=== PATIENT | female | born 1965 | race African-American/Black ===

== ENCOUNTER 2024-12-12 22:20 | Inpatient (IN) | payer OTHER ==
[2024-12-12 23:03] VITALS: BMI 24.7
[2024-12-12] MEDS ORDERED: ACETAMINOPHEN 325 MG TABLET (FP) PO PRN (23:20)
[2024-12-12] MEDS ORDERED: NALOXONE (NARCAN) HCL 4 MG/0.1 ML SPRAY NS PRN (23:20)
[2024-12-12] MEDS ORDERED: DICYCLOMINE HCL 10 MG CAPSULE PO PRN (23:20)
[2024-12-12] MEDS ORDERED: BENZONATATE 200 MG CAPSULE PO PRN (23:20)
[2024-12-12] MEDS ORDERED: NICOTINE POLACRILEX 2 MG GUM BUC PRN (23:20)
[2024-12-12] MEDS ORDERED: guaiFENesin 600 MG TABLET.ER (FP) PO PRN (23:20)
[2024-12-12] MEDS ORDERED: BENZOCAINE/MENTHOL (CHLORASEPTIC ) LOZENGE MM PRN (23:20)
[2024-12-12] MEDS ORDERED: BISMUTH SUBSALICYLATE 524 MG/30 ML PO PRN (23:20)
[2024-12-12] MEDS ORDERED: IBUPROFEN 600 MG TABLET (FP) PO PRN (23:20)
[2024-12-12] MEDS ORDERED: LOPERAMIDE HCL 2 MG CAPSULE PO PRN (23:20)
[2024-12-12] MEDS ORDERED: IBUPROFEN 400 MG TABLET (FP) PO PRN (23:20)
[2024-12-12] MEDS ORDERED: POLYETHYLENE GLYCOL (HEALTHYLAX) 3350 17 GM PACKET PO PRN (23:20)
[2024-12-12] MEDS ORDERED: ONDANSETRON *ODT* 4 MG TABLET SL PRN (23:20)
[2024-12-12] MEDS ORDERED: NICOTINE POLACRILEX 2 MG LOZENGE BC PRN (23:20)
[2024-12-12] MEDS ORDERED: MAGNESIUM HYDROX 2400MG/30ML ORAL SUSPENSION 30 ML CUP PO PRN (23:20)
[2024-12-12] MEDS ORDERED: MAG HYDROX/AL HYDROX/SIMETH 30 ML UNIT-DOSE CUP PO PRN (23:20)
[2024-12-12] MEDS ORDERED: METOPROLOL TARTRATE 25 MG TABLET (FP) ONE (23:52)
[2024-12-12] MEDS: METOPROLOL TARTRATE 25 MG TABLET (FP) PO ONE (23:57)
[2024-12-13] MEDS: METHOCARBAMOL 500 MG TABLET PO PRN (01:25)
[2024-12-13] MEDS: hydrOXYzine PAMOATE 25 MG CAPSULE (FP) PO PRN (01:26)
[2024-12-13] MEDS: PRENATAL VITAMINS W/ FOLIC ACID TABLET (FP) PO SCH (10:49)
[2024-12-13] MEDS: metFORMIN HCL 500 MG TABLET (FP) PO SCH (10:50)
[2024-12-13] MEDS: MELATONIN 5 MG TABLETS PO SCH (22:29)
[2024-12-13] MEDS: THIAMINE 100 MG TABLET PO SCH (22:30)
[2024-12-14 13:43] VITALS: RESP 14
[2024-12-14] MEDS ORDERED: NALTREXONE HCL 50 MG TABLET PO ONE (13:54)
[2024-12-14] MEDS: NICOTINE 21 MG/24 HOURS TOPICAL PATCH TD SCH (14:15)
[2024-12-14] MEDS: NALTREXONE HCL 50 MG TABLET PO ONE (14:15)
[2024-12-14] MEDS ORDERED: metFORMIN HCL 500 MG TABLET (FP) PO SCH (16:30)
[2024-12-14 16:51] VITALS: BP 152/86; PULSE 70; TEMP 97.6
[2024-12-15] MEDS ORDERED: NALTREXONE HCL 50 MG TABLET PO SCH (10:00)
== END 2024-12-14 16:36 | disposition left against medical advice (07) | DRG 770 ==
LOC: YASAS 22:20 → Y3N 12-13 00:50
PROVIDERS: ADMIT Allergy & Immunology; ATTEND Allergy & Immunology
PROC: HZ2ZZZZ Detoxification Services for Substance Abuse Treatment (ICD-10-PCS; principal; 2024-12-13)
DX: F10.230 Alcohol dependence with withdrawal, uncomplicated (principal); F14.20 Cocaine dependence, uncomplicated; F17.290 Nicotine dependence, other tobacco product, uncomplicated; I10 Essential (primary) hypertension; E11.9 Type 2 diabetes mellitus without complications; Z79.84 Long term (current) use of oral hypoglycemic drugs
CPT/HCPCS: 36415; 80305; 80307; 81025; 82962